=== PATIENT | female | born 1995 | race Caucasian/White ===

== ENCOUNTER → 2016-06-20 | Outpatient (CLI) | payer BC ==
--- NOTE | 2016-06-20 14:13 | REP ---
OB ULTRASOUND: HISTORY: Supervision of for anatomy. FINDINGS: Scanning through the gravid uterus demonstrates a viable single intrauterine gestation in a variable lie. motion is observed and the heart rate is recorded at 139 beats per minute. An anterior grade 0 placenta is seen without evidence of previa or abruption. Amniotic fluid is subjectively normal. Closed cervical length is 3.0 cm. No extrauterine abnormality is observed. The exam quality is inhibited by maternal body habitus and position. No anomaly is seen. The following anatomic structures are less than optimally seen, however: Cerebellum and posterior fossa, face and profile, four-chamber heart with outflow tract views, diaphragm, abdominal wall cord insertion, three-vessel cord, spine, and upper and lower extremities. The following anatomic structures are identified and felt to be unremarkable. cranium, choroid plexus, cavum, stomach on the left side, kidneys and bladder. Biometry Chart: BPD 4.7 cm = 20 weeks 2 days HC 17.2 cm = 19 weeks 6 days AC 14.8 cm = 20 weeks 0 days FL 3.3 cm = 20 weeks 2 days HL 3.1 cm = 20 weeks 2 days HC/AC ratio normal 1.17. Cephalic index normal 0.7. Estimated weight 335 grams, 0 pounds, 11 ounces, 28th percentile for 20 weeks 5 days. IMPRESSION: Viable single intrauterine gestation at 20 weeks 1 day by today's composite sonographic criteria. DAVID by today's sonography 11/06/2016. anatomic survey is incomplete as above. Scan quality is inhibited by position and maternal body habitus. Signed by Bharath Abreu MD 06/20/2016 07:28 P
== END ==
LOC: M RAD 12:16
PROVIDERS: ATTEND Obstetrics & Gynecology
DX: Z36 Encounter for antenatal screening of mother (principal); Z3A.20 20 weeks gestation of pregnancy

== ENCOUNTER → 2016-07-15 | Outpatient (CLI) | payer BC ==
--- NOTE | 2016-07-16 05:17 | REP ---
Clinical: Anatomical evaluation. Comparison: 06/20/2016 . Findings: Examination demonstrates a single live intrauterine in breech presentation. motion is identified by technologist. Placenta is noted anteriorly and grade zero without evidence for placenta previa or abruption. Amniotic fluid volume is normal. Cervix measures 3.1 cm in length and appears closed. Nuchal cord cannot be excluded. Gestational age by LMP 24 weeks 4 days with DAVID 10/31/2016 . Gestational age by current measurements 23 weeks 5 days with DAVID 11/06/2016 . FHR equals 158 beats per minute. Estimated weight see 652 grams ( 28th percentile). Anatomical assessment demonstrates normal structures including cranium, choroid plexus, cavum, cerebellum/posterior fossa, facial features, lungs, four-chamber heart/ventricular outflow tracts, diaphragm, stomach, cord insertion/three-vessel cord, kidneys/bladder, spine, and extremities. Impression: Live fetus in breech presentation demonstrating appropriate growth. Nuchal cord cannot be excluded. Anatomical assessment is complete and normal. Signed by Les Oliva MD 07/16/2016 05:09 A
== END ==
LOC: M RAD 13:32
PROVIDERS: ATTEND Obstetrics & Gynecology
DX: Z36 Encounter for antenatal screening of mother (principal); Z3A.24 24 weeks gestation of pregnancy

== ENCOUNTER → 2016-08-05 | Outpatient (CLI) | payer BC, MEDICAID ==
[2016-08-05 12:36] LABS: MEAN CORPUSCULAR HEMOGLOBIN 30.3 pg (27.0-33.0); MEAN CORPUSCULAR HGB CONC 35.1 g/dl (32.0-36.5); MEAN CORPUSCULAR VOLUME 86.2 fl (80.0-96.0); RED CELL DISTRIBUTION WIDTH 12.9 % (11.5-14.5); WHITE BLOOD COUNT 13.3 K/mm3 (4.0-10.0)
== END ==
LOC: M LAB 10:46
PROVIDERS: ATTEND Obstetrics & Gynecology
DX: Z36 Encounter for antenatal screening of mother (principal); Z3A.00 Weeks of gestation of pregnancy not specified

== ENCOUNTER → 2016-09-10 | Outpatient (CLI) | payer BC, MEDICAID ==
[2016-09-10 13:42] LABS: MEAN CORPUSCULAR HEMOGLOBIN 30.6 pg (27.0-33.0); MEAN CORPUSCULAR HGB CONC 35.1 g/dl (32.0-36.5); MEAN CORPUSCULAR VOLUME 87.2 fl (80.0-96.0); RED CELL DISTRIBUTION WIDTH 12.8 % (11.5-14.5)
[2016-09-10 14:07] LABS: ALT/SGPT 15 U/L (12-78); BILIRUBIN,TOTAL 0.2 MG/DL (0.2-1.0); CREATININE FOR GFR 0.46 MG/DL (0.55-1.02); URIC ACID 3.4 MG/DL (2.6-6.0)
[2016-09-11 08:29] LABS: WHITE BLOOD COUNT 11.7 K/mm3 (4.0-10.0)
[2016-09-11 08:30] LABS: AST/SGOT 10 U/L (15-37)
== END ==
LOC: M LAB 11:49
PROVIDERS: ATTEND Obstetrics & Gynecology
DX: O13.3 Gestational [pregnancy-induced] hypertension without significant proteinuria, third trimester (principal); Z3A.31 31 weeks gestation of pregnancy

== ENCOUNTER → 2016-09-30 | Outpatient (REF) | payer BC, MEDICAID ==
[~2016-09-30] MED LIST: ANTA500C PO; PRENTAB9 PO; PROZ20CA11 PO; TUMS500C PO; TYLE325T5 PO; TYLE500T78 PO
== END ==
LOC: M LAB REF 16:14
PROVIDERS: ATTEND Advanced Practice Midwife
DX: Z36 Encounter for antenatal screening of mother (principal); Z3A.00 Weeks of gestation of pregnancy not specified

== ENCOUNTER 2016-10-02 17:34 | Outpatient (CLI) | payer BC, MEDICAID ==
[~2016-10-02] VITALS: Ht 162.6 cm; Wt 139.0 kg
[2016-10-02 17:53] VITALS: BP 144/89
[2016-10-02] MEDS ORDERED: ANTA500C PO (18:10)
[2016-10-02] MEDS ORDERED: PRENTAB9 PO (18:10)
[2016-10-02] MEDS ORDERED: TYLE325T5 PO (18:10)
[2016-10-02] MEDS: ACETAMINOPHEN 500 MG TAB PO PRN (18:55)
[2016-10-02 19:12] LABS: MEAN CORPUSCULAR HEMOGLOBIN 30.2 pg (27.0-33.0); MEAN CORPUSCULAR HGB CONC 35.5 g/dl (32.0-36.5); MEAN CORPUSCULAR VOLUME 85.2 fl (80.0-96.0); RED CELL DISTRIBUTION WIDTH 13.1 % (11.5-14.5); WHITE BLOOD COUNT 12.6 K/mm3 (4.0-10.0)
--- NOTE | 2016-10-02 19:13 | IPNPDOC ---
Text Note Date of Service The patient was seen on 10/02/16 at 1630. NOTE Subjective: Patient is a who is at 35 weeks with an DAVID of 11/06/2016 based off her first trimester ultrasound. She initiated her care in the first trimester at [facility]. Her has been complicated by preeclampsia which was diagnosed on 09/10/16. She presents to labor and delivery with complaints of a headache that started at noon. She took 1000 mg of Tylenol in the pelvis asleep. She woke up and still had a headache and did not take any more Tylenol. Denies epigastric pain or visual changes. Reports active movement. Denies vaginal bleeding or leaking of fluid. Objective: heart rate 140, moderate variability, positive accelerations, no decelerations. Contractions: None noted. Vital signs: Blood pressure 144/89, heart rate 104, respirations 18, temperature 97.7F. Urine dip: SG 1.015, pH: 6, 2+ leukocytes, and a trace of protein. Abdomen: gravid, soft. Extremities: bilateral 2-3+ pitting edema present legs and feet. 1+ reflexes. Assessment: IUP at 35 weeks gestation, preeclampsia, category 1 heart rate tracing Plan: Patient to be observed. Labs per order. Spot urine to be done. Tylenol ordered for PARMAR every [address] Perkins aware of patient being present in department, assessment, and plan of care. Will continue to observe. VS,Fishbone, I+O VS, Fishbone, I+O Vital Signs Date Time Temp Pulse Resp B/P Pulse Ox O2 Delivery O2 Flow Rate FiO2 10/02/16 17:53 97.7 104 18 144/89 Room Air DAVE OSBORN CNM Oct 02, 2016 19:13
[2016-10-02 19:19] LABS: ALT/SGPT 13 U/L (12-78); AST/SGOT 7 U/L (15-37); BILIRUBIN,TOTAL 0.2 MG/DL (0.2-1.0); CREATININE FOR GFR 0.41 MG/DL (0.55-1.02); URIC ACID 3.7 MG/DL (2.6-6.0)
[2016-10-02] MEDS ORDERED: PROZ20CA11 PO (20:39)
[2016-10-02] MEDS: BETAMETHASONE SOLUSPAN 6MG/ML INJ 5ML (J0702) IM SCH (21:01)
[2016-10-02] MEDS ORDERED: TYLE500T78 PO (22:34)
[2016-10-02] MEDS ORDERED: TUMS500C PO (22:34)
[2016-10-03] MEDS: ACETAMINOPHEN 500 MG TAB PO PRN (01:12)
[2016-10-03 07:43] VITALS: BP 170/76
[2016-10-03 08:09] VITALS: BP 136/88
[2016-10-03 12:10] LABS: MEAN CORPUSCULAR HEMOGLOBIN 30.2 pg (27.0-33.0); MEAN CORPUSCULAR HGB CONC 35.6 g/dl (32.0-36.5); RED CELL DISTRIBUTION WIDTH 12.9 % (11.5-14.5); WHITE BLOOD COUNT 12.1 K/mm3 (4.0-10.0)
[2016-10-03 12:52] LABS: ALT/SGPT 11 U/L (12-78); AST/SGOT 11 U/L (15-37); BILIRUBIN,TOTAL 0.3 MG/DL (0.2-1.0); CREATININE FOR GFR 0.43 MG/DL (0.55-1.02)
[2016-10-03] MEDS: BETAMETHASONE SOLUSPAN 6MG/ML INJ 5ML (J0702) IM SCH (18:47)
--- NOTE | 2016-10-05 03:43 | IPNPDOC ---
Text Note Date of Service The patient was seen on 10/03/16 at 2030. NOTE Subjective: Patient reports she no longer has a headache after taking Tylenol. Objective: VS: 135/86, 137/76, 131/68. FHR: 135, moderate variability, positive accelerations, no decelerations. Contractions occasional. Assessment: IUP at 35 weeks gestation, preeclampsia, category I FHR Plan: Betamethasone ordered for patient. Will continue to monitor for 24 hours. Labs reviewed and are stable. Reviewed labs with Dr. Perkins. Spot urine 0.19. VS,Fishbone, I+O VS, Fishbone, I+O Vital Signs Date Time Temp Pulse Resp B/P Pulse Ox O2 Delivery O2 Flow Rate FiO2 10/03/16 08:09 97 136/88 Room Air 10/03/16 07:43 98.7 18 DAVE OSBORN CNM Oct 05, 2016 03:33
--- NOTE | 2016-10-05 03:49 | IPNPDOC ---
Text Note Date of Service The patient was seen on 10/04/16 at 1420. NOTE Subjective: Patient states she is feeling well. Denies headache, visual changes , and epigastric pain. Objective: VS from 0809: 136/88, 97, 18, 98.9; FHR: 130, moderate variability, positive accelerations, no decelerations. Contractions every 3-11 minutes. Assessment: IUP at 35 weeks 1 day gestation, preeclampsia Plan: Will be beta complete. Reviewed case with Dr. Galeas. Patient has no symptoms of preeclampsia and BPs are stable along with repeat labs. Patient may be discharged home after beta. Beta may be given a few hours earlier to scheduled time of 2100. Dr. Galeas agrees that patient is stable to be discharged home. Symptoms reviewed with patient and encouraged to call office with symptoms. She will follow up in the office on Thursday. VS,Fishbone, I+O VS, Fishbone, I+O Vital Signs Date Time Temp Pulse Resp B/P Pulse Ox O2 Delivery O2 Flow Rate FiO2 10/03/16 08:09 97 136/88 Room Air 10/03/16 07:43 98.7 18 DAVE OSBORN CNM Oct 05, 2016 03:49
== END 2016-10-03 18:50 | disposition home or self-care (01) ==
LOC: M LDO 17:34
PROVIDERS: ATTEND Obstetrics & Gynecology
DX: O14.03 Mild to moderate pre-eclampsia, third trimester (principal); Z3A.35 35 weeks gestation of pregnancy
CPT/HCPCS: 36415; 59025; 82247; 82565; 82570; 83615; 84156; 84450; 84460; 84550; 85027; 96372; J0702

== ENCOUNTER → 2016-10-10 | Outpatient (REF) | payer BC, MEDICAID | LOC: M LAB REF 16:50 | PROVIDERS: ATTEND Obstetrics & Gynecology | DX: O14.03 Mild to moderate pre-eclampsia, third trimester (principal); Z3A.00 Weeks of gestation of pregnancy not specified ==

== ENCOUNTER → 2016-10-13 | Outpatient (REF) | payer BC, MEDICAID ==
[2016-10-13 19:33] LABS: MEAN CORPUSCULAR HGB CONC 34.1 g/dl (32.0-36.5); MEAN CORPUSCULAR VOLUME 87.9 fl (80.0-96.0); RED CELL DISTRIBUTION WIDTH 13.2 % (11.5-14.5); WHITE BLOOD COUNT 13.7 K/mm3 (4.0-10.0)
[2016-10-13 20:06] LABS: ALT/SGPT 13 U/L (12-78); AST/SGOT 11 U/L (15-37); BILIRUBIN,TOTAL 0.3 MG/DL (0.2-1.0); CREATININE FOR GFR 0.49 MG/DL (0.55-1.02); URIC ACID 4.3 MG/DL (2.6-6.0)
== END ==
LOC: M LAB REF 17:04
PROVIDERS: ATTEND Advanced Practice Midwife
DX: O14.03 Mild to moderate pre-eclampsia, third trimester (principal); Z3A.00 Weeks of gestation of pregnancy not specified

== ENCOUNTER → 2016-10-21 | Outpatient (CLI) | payer BC, MEDICAID ==
[~2016-10-21] MED LIST changes: +COLA100C3 PO; +MOTR200T44 PO; +STUACAP PO
[2016-10-21 13:24] LABS: MEAN CORPUSCULAR HEMOGLOBIN 30.9 pg (27.0-33.0); MEAN CORPUSCULAR VOLUME 88.2 fl (80.0-96.0); RED CELL DISTRIBUTION WIDTH 13.3 % (11.5-14.5)
[2016-10-21 13:54] LABS: ALT/SGPT 11 U/L (12-78); AST/SGOT 9 U/L (15-37); BILIRUBIN,TOTAL 0.3 MG/DL (0.2-1.0); URIC ACID 4.9 MG/DL (2.6-6.0)
== END ==
LOC: M LAB 11:57
PROVIDERS: ATTEND Obstetrics & Gynecology
DX: O14.03 Mild to moderate pre-eclampsia, third trimester (principal); Z3A.00 Weeks of gestation of pregnancy not specified

== ENCOUNTER 2016-10-22 09:57 | Inpatient (IN) | payer BC, MEDICAID ==
[~2016-10-22] VITALS: Ht 162.6 cm; Wt 140.0 kg
[2016-10-22] VITALS (53 sets, daily range): BP systolic 94–166; BP diastolic 47–107
[~2016-10-22 09:57] MED LIST changes: -COLA100C3 PO; -MOTR200T44 PO; -STUACAP PO
[2016-10-22] MEDS ORDERED: PENICILLIN G POTASSIUM IV 5 MU in D5W MINI-BAG PLUS 100 ML IV STA (10:11)
[2016-10-22] MEDS ORDERED: LACTATED RINGER'S 1000 ML IV STA (10:11)
[2016-10-22] MEDS ORDERED: miSOPROStol 50 MCG 1/2 TAB (S0191) PO ONE (10:15)
[2016-10-22 11:38] LABS: MEAN CORPUSCULAR HEMOGLOBIN 30.7 pg (27.0-33.0); MEAN CORPUSCULAR HGB CONC 35.1 g/dl (32.0-36.5); MEAN CORPUSCULAR VOLUME 87.4 fl (80.0-96.0); RED CELL DISTRIBUTION WIDTH 13.4 % (11.5-14.5); WHITE BLOOD COUNT 11.6 K/mm3 (4.0-10.0)
[2016-10-22 14:54] LABS: ALT/SGPT 16 U/L (12-78); AST/SGOT 24 U/L (15-37); BILIRUBIN,TOTAL 0.2 MG/DL (0.2-1.0); CREATININE FOR GFR 0.44 MG/DL (0.55-1.02)
[2016-10-22] MEDS ORDERED: PENICILLIN G POTASSIUM IV 2.5 MU in D5W 100 ML IV SCH (15:30)
[2016-10-22] MEDS ORDERED: BICITRA 30ML SOLN UDC PO ONE (16:00)
[2016-10-22] MEDS ORDERED: MAGNESIUM SULFATE 4% INJ 20GM/500ML (40MG/ML) (J3475) As Ordered ONE (16:39)
[2016-10-22] MEDS ORDERED: MAGNESIUM *L&D* 4 GM/100 ML BAG (40MG/ML) (J3475) As Ordered ONE (16:39)
[2016-10-22] MEDS ORDERED: MAGNESIUM *L&D* 4 GM/100 ML BAG (40MG/ML) (J3475) IV ONE (16:45)
[2016-10-22] MEDS: MAG Sulf (OBGYN) 20GM/500ML 20,000 MG in APPROPRIATE DILUENT 1 EA IV SCH (17:08)
[2016-10-22] MEDS ORDERED: OXYTOCIN DRIP 30 UNITS in APPROPRIATE DILUENT 1 EA IV SCH (17:30)
[2016-10-22] MEDS ORDERED: LR 1,000 ML IV SCH (17:45)
[2016-10-22] MEDS ORDERED: LR 1,000 ML IV ONE (18:45)
[2016-10-22 19:15] LABS: MEAN CORPUSCULAR HEMOGLOBIN 30.4 pg (27.0-33.0); MEAN CORPUSCULAR HGB CONC 35.2 g/dl (32.0-36.5); MEAN CORPUSCULAR VOLUME 86.5 fl (80.0-96.0); RED CELL DISTRIBUTION WIDTH 13.7 % (11.5-14.5); WHITE BLOOD COUNT 12.6 K/mm3 (4.0-10.0)
[2016-10-22] MEDS ORDERED: FENTANYL 2MCG/ML ROPIVACAINE 0.2% IN 0.9% NACL 200ML IVBAG As Ordered ONE (19:30)
[2016-10-22] MEDS ORDERED: diphenhydrAMINE INJ 50MG/ML VIAL (J1200) IV PRN (20:30)
[2016-10-22] MEDS ORDERED: LACTATED RINGER'S 1000 ML IV PRN (20:30)
[2016-10-22] MEDS ORDERED: FENTANYL/ROPIVACAINE/NACL BAG 200 ML EPIDURAL SCH (20:30)
[2016-10-22] MEDS ORDERED: EPIDURAL COMMENT XX SCH (20:30)
[2016-10-22] MEDS ORDERED: ePHEDrine SULFATE 25 MG/5 ML(5MG/ML) SYRINGE IV PRN (20:30)
[2016-10-22] MEDS ORDERED: EPIDURAL/PCA KEYS XX PRN (20:30)
[2016-10-22] MEDS ORDERED: ONDANSETRON 4MG/2ML VIAL (J2405) IV PRN (20:30)
[2016-10-22] MEDS ORDERED: NALOXONE INJ 0.4 MG/1 ML VIAL (J2310) IV PRN (20:30)
[2016-10-22] MEDS ORDERED: REFRIGERATOR IV KEYS XX PRN (20:30)
[2016-10-23] VITALS (23 sets, daily range): BP systolic 118–171; BP diastolic 59–85
[2016-10-23] MEDS ORDERED: RHOGAM 300 MCG (1500 IU) INJ (J2790) IM SCH (01:15)
[2016-10-23] MEDS ORDERED: ANUSOL HC CREAM 30GM TOP PRN (01:15)
[2016-10-23] MEDS ORDERED: ONDANSETRON 4MG/2ML VIAL (J2405) IV PRN (01:15)
[2016-10-23] MEDS ORDERED: MEASLES,MUMPS,RUBELLA VACCINE INJ (MMR-II) (90707) SC SCH (01:15)
[2016-10-23] MEDS ORDERED: ACETAMINOPHEN 500 MG TAB PO PRN (01:15)
[2016-10-23] MEDS ORDERED: DIBUCAINE 1% OINTMENT 30GM TOP PRN (01:15)
[2016-10-23] MEDS ORDERED: METHYLERGONOVINE MALEATE 0.2 MG TAB PO PRN (01:15)
[2016-10-23 01:29] LABS: CORD GAS ABE A -8.4; CORD GAS HCO3 A 20.9 MEQ/L; CORD GAS O2 SAT A 33.6 %; CORD GAS PCO2 A 57.7 mmHg; CORD GAS PH A 7.177 UNITS; CORD GAS PO2 A 20.2 mmHg; CORD GAS SBC A 16.3 MEQ/L; CORD GAS TCO2 A 22.7 MEQ/L
[2016-10-23 01:34] LABS: CORD GAS ABE V -5.7; CORD GAS O2 SAT V 58.5 %; CORD GAS PCO2 V 50.4 mmHg; CORD GAS PH V 7.257 UNITS; CORD GAS PO2 V 27.2 mmHg; CORD GAS SBC V 18.9 MEQ/L; CORD GAS TCO2 V 23.5 MEQ/L
[2016-10-23] MEDS: MAG Sulf (OBGYN) 20GM/500ML 20,000 MG in APPROPRIATE DILUENT 1 EA IV SCH ×3 (02:45→22:48)
[2016-10-23 07:38] LABS: MEAN CORPUSCULAR HEMOGLOBIN 30.1 pg (27.0-33.0); MEAN CORPUSCULAR HGB CONC 34.6 g/dl (32.0-36.5); MEAN CORPUSCULAR VOLUME 86.8 fl (80.0-96.0); RED CELL DISTRIBUTION WIDTH 13.5 % (11.5-14.5); WHITE BLOOD COUNT 15.8 K/mm3 (4.0-10.0)
[2016-10-23 08:01] LABS: ALT/SGPT 10 U/L (12-78); AST/SGOT 13 U/L (15-37); BILIRUBIN,TOTAL 0.5 MG/DL (0.2-1.0); CREATININE FOR GFR 0.55 MG/DL (0.55-1.02); MAGNESIUM LEVEL 4.5 MG/DL (1.8-2.4); URIC ACID 5.4 MG/DL (2.6-6.0)
[2016-10-23] MEDS: DOCUSATE SODIUM 100 MG CAP PO SCH ×2 (08:34→19:50)
[2016-10-23] MEDS: PRENATAL VITAMIN TAB PO SCH (08:34)
[2016-10-23] MEDS: IBUPROFEN 800 MG TAB PO SCH ×2 (11:17→19:50)
[2016-10-23] MEDS: LR 1,000 ML IV SCH ×2 (11:17→15:40)
--- NOTE | 2016-10-23 17:20 | DN ---
DATE: 10/23/2016 Ami is a 21-year-old female 1, para 0 who was admitted at 38 weeks gestation with preeclampsia for induction. She underwent Cytotec followed by Pitocin induction, progressed to fully dilated, delivered a live female infant in right occiput anterior position over an intact perineum. scores 8 and 9. weight 7 pounds 6 ounces. Placenta delivered spontaneously intact. Three-vessel cord. Perineum, vagina and cervix inspected. No lacerations noted. Estimated blood loss 300 mL. Both mother and baby in stable condition.
--- NOTE | 2016-10-23 21:25 | HPE ---
DATE OF ADMISSION: 10/22/2016 Ami is a 21-year-old female 1, para 0, estimated date of confinement (EDC) of 11/06/2016, estimated gestational age (EGA) 38 weeks gestation who presented to the office with complaints of a mild headache that started yesterday with improvement with Tylenol. However, upon evaluation, her blood pressure was found to be in the 60s over 90s. The patient has been watched for preeclampsia. This morning the patient was sent to the hospital for further evaluation and admission. record reviewed, other than the elevated blood pressure, her care was essentially unremarkable. LABORATORY DATA: Blood type is A+, rubella immune, hepatitis negative , HIV negative, GC and chlamydia negative. One-hour sugar testing was within normal limits. Her GBS is negative. PAST MEDICAL HISTORY: Significant for asthma and obesity. PAST SURGICAL HISTORY: Denies. SOCIAL HISTORY: Denies any alcohol, drug, or cigarette smoking. REVIEW OF SYSTEMS: Unremarkable. ALLERGIES: No known drug allergies. PHYSICAL EXAMINATION: On admission, blood pressures are 60s over 90 to as high as 102. The patient is a normal-appearing female, obese, in no acute distress. ABDOMEN: Soft, nontender, nondistended. EXTREMITIES: No clubbing, cyanosis, +1 to 2 lower extremity edema. Cervical exam 1 cm, 60% effaced, fetus at -3 station, vertex position. Tracing reviewed, category one tracing with occasional contraction. ASSESSMENT: 1. Intrauterine at 38 weeks gestation. 2. Preeclampsia, cannot rule out severe preeclampsia. PLAN: Admit to labor and delivery for an induction. Induction process discussed with the patient. We will proceed with Cytotec induction followed by Pitocin induction. Laboratories sent. We also discussed the possible need for magnesium sulfate for seizure prophylaxis. Pain management discussed. The patient opted for an epidural. We will continue to monitor. Anticipate delivery. [facility]
[2016-10-24] VITALS (7 sets, daily range): BP systolic 105–147; BP diastolic 58–85
[2016-10-24] MEDS: IBUPROFEN 800 MG TAB PO SCH ×3 (03:00→18:21)
[2016-10-24] MEDS: PRENATAL VITAMIN TAB PO SCH (08:45)
[2016-10-24] MEDS: DOCUSATE SODIUM 100 MG CAP PO SCH ×2 (08:45→21:25)
[2016-10-25 02:00] VITALS: BP 117/56
[2016-10-25] MEDS: IBUPROFEN 800 MG TAB PO SCH ×2 (02:37→11:00)
[2016-10-25 06:00] VITALS: BP 124/65
[2016-10-25] MEDS: PRENATAL VITAMIN TAB PO SCH (08:32)
[2016-10-25] MEDS: DOCUSATE SODIUM 100 MG CAP PO SCH (08:32)
[2016-10-25 10:00] VITALS: BP 131/71
[2016-10-25] MEDS ORDERED: MOTR200T44 PO (11:49)
[2016-10-25] MEDS ORDERED: COLA100C3 PO (11:49)
[2016-10-25] MEDS ORDERED: STUACAP PO (11:49)
== END 2016-10-25 12:20 | disposition home or self-care (01) | DRG 560 ==
LOC: M LDI 09:57 → M OBS 10-23 07:10
PROVIDERS: ADMIT Obstetrics & Gynecology; ATTEND Obstetrics & Gynecology
PROC: 3E0D7GC Introduction of Other Therapeutic Substance into Mouth and Pharynx, Via Natural or Artificial Opening (ICD-10-PCS; 2016-10-22)
PROC: 10E0XZZ Delivery of Products of Conception, External Approach (ICD-10-PCS; principal; 2016-10-23)
DX: O14.94 Unspecified pre-eclampsia, complicating childbirth (principal); E66.9 Obesity, unspecified; O99.52 Diseases of the respiratory system complicating childbirth; J45.909 Unspecified asthma, uncomplicated; O99.214 Obesity complicating childbirth; Z37.0 Single live birth; Z3A.38 38 weeks gestation of pregnancy; Z79.899 Other long term (current) drug therapy

== ENCOUNTER 2022-12-21 21:20 | Emergency (ER) | payer BC, MEDICAID, OTHER ==
[~2022-12-21] VITALS: Ht 162.6 cm; Wt 153.1 kg
[~2022-12-21 21:20] MED LIST changes: -ANTA500C PO; +BACTDSTA PO; +CALC1CHW3 PO; +COLA100C5 PO; +KETO10TAB PO; +MOTR200T44 PO; +STUACAP PO; +tylenol PO
[2022-12-21 23:58] VITALS: BP 138/91; TEMP 97.6; O2SAT 98
== END 2022-12-22 00:13 | disposition home or self-care (01) ==
LOC: M ED 21:20
DX: S56.911A Strain of unspecified muscles, fascia and tendons at forearm level, right arm, initial encounter (principal); W01.0XXA Fall on same level from slipping, tripping and stumbling without subsequent striking against object, initial encounter; J45.909 Unspecified asthma, uncomplicated; K21.9 Gastro-esophageal reflux disease without esophagitis; Y99.0 Civilian activity done for income or pay; Z79.810 Long term (current) use of selective estrogen receptor modulators (SERMs); Z79.899 Other long term (current) drug therapy